=== PATIENT | male | born 1975 | race Caucasian/White ===

== ENCOUNTER 2016-07-14 11:48 | Emergency (ER) | payer SELFPAY ==
[~2016-07-14] VITALS: Ht 182.9 cm; Wt 81.6 kg
[2016-07-14 11:48] VITALS: BP_SYST 115
[2016-07-14 18:41] VITALS: BP_SYST 137
== END 2016-07-14 18:41 | disposition home or self-care (01) ==
LOC: SED 11:48
DX: F10.129 Alcohol abuse with intoxication, unspecified (principal)
CPT/HCPCS: 99283